=== PATIENT | male | born 1960 | race African-American/Black ===

== ENCOUNTER 2018-07-04 10:15 | Emergency (ER) | payer OTHER ==
[2018-07-04] MEDS ORDERED: AMLO-104 PO (10:37)
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
[2018-07-04] MEDS ORDERED: IBUPROFEN 600 MG TAB PO ONE (11:55)
[2018-07-04 12:06] VITALS: BP 190/134
[2018-07-04] MEDS ORDERED: METO-233 PO (12:14)
[2018-07-04] MEDS ORDERED: AMLO-5 PO (12:14)
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
== END 2018-07-04 13:27 | disposition home or self-care (01) ==
LOC: ER 10:26
DX: S89.91XA Unspecified injury of right lower leg, initial encounter (principal); M79.89 Other specified soft tissue disorders; V68.5XXA Driver of heavy transport vehicle injured in noncollision transport accident in traffic accident, initial encounter
CPT/HCPCS: 73564; 99283

== ENCOUNTER 2018-07-04 13:55 | Emergency (ER) | payer OTHER ==
[~2018-07-04 13:55] MED LIST: AMLO-104 PO; AMLO-5 PO; METO-233 PO
[2018-07-04] MEDS ORDERED: NS(*) 0.9% 1000 ML BAG 1,000 ML IV ONE (13:59)
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
[2018-07-04] MEDS ORDERED: ONDANSETRON 4 MG/2 ML VIAL IVP ONE (14:10)
[2018-07-04 14:18] LABS: PLATELET COUNT, AUTOMATED 286 K/uL (150-450)
--- NOTE | 2018-07-04 15:01 | EKG ---
FACILITY: [facility] - [place] PATIENT NAME: ARABELLA HACKETT : [id number] MR: [id number] V: [id number] EXAM DATE: ORDERING PHYSICIAN: KENJI JOHNSON TECHNOLOGIST: Test Reason : syncope Blood Pressure : / mmHG Vent. Rate : 063 BPM Atrial Rate : 063 BPM P-R Int : 168 ms QRS Dur : 118 ms QT Int : 504 ms P-R-T Axes : 018 -06 045 degrees QTc Int : 515 ms Sinus rhythm Nonspecific interventricular conduction delay Possible inferior infarct Voltage criteria present in AVL for LVH Nonspecific ST findings Prolonged QT Abnormal ECG No previous ECGs available Confirmed by ADALGISA SEYMOUR ([id number]) on 07/04/2018 9:16:01 PM Referred By: Confirmed By:ADALGISA SEYMOUR
--- NOTE | 2018-07-04 18:25 | EKG ---
FACILITY: [facility] - [place] PATIENT NAME: ARABELLA HACKETT : [id number] MR: [id number] V: [id number] EXAM DATE: ORDERING PHYSICIAN: KENJI JOHNSON TECHNOLOGIST: Test Reason : MD requested Blood Pressure : / mmHG Vent. Rate : 083 BPM Atrial Rate : 083 BPM P-R Int : 160 ms QRS Dur : 112 ms QT Int : 436 ms P-R-T Axes : 051 042 056 degrees QTc Int : 512 ms Sinus rhythm Nonspecific interventricular conduction delay Nonspecific ST findings Prolonged QT Abnormal ECG Confirmed by ADALGISA SEYMOUR ([id number]) on 07/04/2018 9:17:35 PM Referred By: Confirmed By:ADALGISA SEYMOUR
[2018-07-04 18:30] VITALS: BP 169/119
== END 2018-07-04 19:08 | disposition home or self-care (01) ==
LOC: ER 14:19
DX: R55 Syncope and collapse (principal)
CPT/HCPCS: 36415; 81001; 84484; 85025; 85379; 93005; 96361; 96374; 99284; J2405; J7030; 82040; 82247; 82310; 82374; 82435; 82565; 82947; 84075; 84132; 84155; 84295; 84450; 84460; 84520